=== PATIENT | female | born 1995 | race Caucasian/White ===

== ENCOUNTER 2018-01-04 06:48 | Day surgery (SDC) | payer OTHER ==
[~2018-01-04] VITALS: Ht 167.6 cm; Wt 78.1 kg
[2018-01-04] MEDS ORDERED: PROTONIX20 MG PO (07:07)
[2018-01-04] MEDS ORDERED: PROZAC60 MG PO (07:07)
[2018-01-04 07:08] VITALS: BP 135/91; PULSE 73; TEMP 98.3
[2018-01-04] MEDS ORDERED: ZOFRAN 4MG T4 MG/TAB PO (07:08)
[2018-01-04] MEDS ORDERED: ZANTAC 7575 MG PO (07:08)
== END 2018-01-04 10:25 | disposition home or self-care (01) ==
LOC: SDCO 06:48
DX: K21.0 Gastro-esophageal reflux disease with esophagitis (principal); D64.9 Anemia, unspecified; G47.33 Obstructive sleep apnea (adult) (pediatric); K44.0 Diaphragmatic hernia with obstruction, without gangrene; K44.9 Diaphragmatic hernia without obstruction or gangrene; Z53.8 Procedure and treatment not carried out for other reasons
CPT/HCPCS: J7120

== ENCOUNTER 2018-11-13 20:52 | Emergency (ER) | payer OTHER ==
[~2018-11-13] VITALS: Ht 167.6 cm; Wt 81.8 kg
[~2018-11-13 20:52] MED LIST: NAPROSYN 2250 MG/TAB PO; PROTONIX20 MG PO; PROZAC60 MG PO; ZANTAC 7575 MG PO; ZOFRAN 4MG T4 MG/TAB PO
[2018-11-13 20:53] VITALS: TEMP 97.4
[2018-11-13 21:26] LABS: BASO % 0.3 % (0.0-2.0); GRAN # 6.6 (1.4-6.5); GRAN % 74.2 % (42.2-75.2); HEMATOCRIT 42.3 % (37.0-47.0); HEMOGLOBIN 14.1 g/dl (12.5-16.0); LYMPH # 1.7 (1.2-3.4); LYMPH % 18.6 % (20.0-51.0); MEAN CELL VOLUME 87 fl (80.0-100.0); MEAN CORPUSCULAR HEMOGLOBIN 29 pg (27.0-31.0); MEAN CORPUSCULAR HGB CONC 33 g/dl (33.0-37.0); MEAN PLATELET VOLUME 10.6 fl (7.4-10.4); MONO # 0.6 (0.1-0.6); MONO % 6.7 % (1.7-9.3); PLATELET COUNT 342 K/mm3 (130-400); RED BLOOD COUNT 4.87 M/mm3 (4.10-5.30); REDCELL DISTRIBUTION WIDTH-CV 14.2 % (11.5-14.5)
[2018-11-13 21:51] LABS: ACETAMINOPHEN < 10 ug/mL (10-30); SALICYLATE < 1.0 mg/dL
[2018-11-13 21:52] LABS: ALANINE AMINOTRANSFERASE 29 U/L (9-52); ALCOHOL(ethanol),MEDICAL < 10 mg/dL; ALKALINE PHOSPHATASE 101 U/L (50-136); ANION GAP 13 mmol/L (7-16); AST,SGOT 40 U/L (15-37); BILIRUBIN,TOTAL 0.8 mg/dL (0.0-1.0); BLOOD UREA NITROGEN 8 mg/dL (7-17); C-REACTIVE PROTEIN < 0.5 mg/dL (0.0-0.9); CALCIUM 10.1 mg/dL (8.4-10.2); CARBON DIOXIDE 21 mmol/L (22-30); CHLORIDE 103 mmol/L (98-107); CREATININE, serum 0.69 mg/dL (0.52-1.25); GLUCOSE 110 mg/dL (74-106); POTASSIUM 3.5 mmol/L (3.4-5.0); SODIUM 137 mmol/L (137-145)
[2018-11-14 00:17] LABS: COLLECTION METHOD RANDOM VOIDED
[2018-11-14 00:33] LABS: MUCOUS Present /lpf; PH 6 (5-8); URINE APPEARANCE Cloudy; URINE BACTERIA None Seen /hpf; URINE BILIRUBIN Negative (NEGATIVE); URINE BLOOD Negative (NEGATIVE); URINE COLOR Yellow; URINE GLUCOSE Negative (NEGATIVE); URINE KETONE 2+ (NEGATIVE); URINE LEUKOCYTE ESTERASE Negative (NEGATIVE); URINE NITRATE Negative (NEGATIVE); URINE PROTEIN(semi-quant) 1+ (NEGATIVE); URINE RBC 0-2 /hpf; URINE UROBILINOGEN >=4.0 mg/dL (NEGATIVE)
[2018-11-14 00:34] LABS: TRICYCLIC ANTIDEPRESS URINE NEGATIVE
[2018-11-14 00:50] VITALS: BP 149/93; PULSE 62
== END 2018-11-14 00:50 | disposition home or self-care (01) ==
LOC: COL.ER 20:52
PROVIDERS: Emergency Medicine
DX: R41.82 Altered mental status, unspecified (principal)
CPT/HCPCS: J1630; J2060; J2405; J7030

== ENCOUNTER 2020-03-09 02:45 | Emergency (ER) | payer OTHER ==
[~2020-03-09] VITALS: Ht 167.6 cm; Wt 65.9 kg
[2020-03-09 03:16] LABS: HEMOGLOBIN 11.1 g/dl (12.5-16.0); MEAN CELL VOLUME 79 fl (80.0-100.0); MEAN CORPUSCULAR HEMOGLOBIN 24 pg (27.0-31.0); MEAN CORPUSCULAR HGB CONC 31 g/dl (33.0-37.0); MEAN PLATELET VOLUME 10.9 fl (7.4-10.4); PLATELET COUNT 318 K/mm3 (130-400); RED BLOOD COUNT 4.55 M/mm3 (4.10-5.30)
[2020-03-09 03:19] LABS: HEMATOCRIT 35.9 % (37.0-47.0)
[2020-03-09 03:25] LABS: ALBUMIN 4.5 gm/dL (3.5-5.0); BILIRUBIN,TOTAL 0.4 mg/dL (0.0-1.0); CALCIUM 9.1 mg/dL (8.4-10.2); CREATININE, serum 0.57 (0.52-1.25); POTASSIUM 3.9 mmol/L (3.4-5.0); TOTAL PROTEIN 8.5 gm/dL (6.4-8.2)
[2020-03-09 03:49] LABS: EOSINOPHIL 2 % (0-4); LYMPHOCYTE 48 % (20.0-51.0); NEUTROPHILS 48 % (42.0-75.2); PLATELET ESTIMATE NORMAL (NORMAL)
[2020-03-09 06:18] LABS: COLLECTION METHOD CLEAN CATCH
[2020-03-09 06:25] LABS: MUCOUS Present /lpf; PH 6 (5-8); SQUAMOUS EPITHELIAL 0-2 /hpf; URINE APPEARANCE Clear; URINE BACTERIA None Seen /hpf; URINE BILIRUBIN Negative (NEGATIVE); URINE BLOOD 2+ (NEGATIVE); URINE COLOR Yellow; URINE GLUCOSE Negative (NEGATIVE); URINE KETONE Negative (NEGATIVE); URINE LEUKOCYTE ESTERASE Negative (NEGATIVE); URINE NITRATE Negative (NEGATIVE); URINE PROTEIN(semi-quant) Negative (NEGATIVE); URINE RBC 0-2 /hpf; URINE UROBILINOGEN Negative (NEGATIVE)
[2020-03-09 07:28] VITALS: BP 102/86; PULSE 77
== END 2020-03-09 07:28 | disposition home or self-care (01) ==
LOC: COL.ER 02:45
PROVIDERS: Emergency Medicine
DX: O20.0 Threatened abortion (principal); Z3A.01 Less than 8 weeks gestation of pregnancy